=== PATIENT | male | born 1965 | race Caucasian/White ===

== ENCOUNTER 2019-06-20 17:03 | Emergency (ER) | payer MEDICARE, SELFPAY ==
[2019-06-20 17:18] VITALS: BP 186/102; PULSE 98; RESP 20; TEMP 36.6; O2SAT 98
--- NOTE | 2019-06-20 18:26 | ED.UPPEXIN ---
HPI - Extremity Injury (Upper) General Chief Complaint: Extremity Injury, Upper Stated Complaint: right arm swelling Time Seen by Provider: 06/20/19 18:01 Source: patient Mode of arrival: Ambulatory History of Present Illness HPI narrative: Patient is a 54-year-old male with history of diabetes coronary artery disease hypertension hyperlipidemia presenting with right arm swelling for 1. He has actually seen evaluated at [facility] where he says he has an ultrasound done which was negative he was diagnosed with tendinitis sent home. He has been taking Tylenol as needed for pain but continues to have pain and swelling. He denies numbness or tingling. He does have some mild erythema but says that he has been rubbing it. He denies any fever or chills. He denies any history of IV in that arm. MD complaint: injury to: right Related Data Previous Rx's Medication Instructions Recorded cephalexin [Keflex] 500 mg PO TID #21 cap 06/20/19 Allergies Allergy/AdvReac Type Severity Reaction Status Date / Time No Known Drug Allergies Allergy Verified 06/20/19 17:24 Review of Systems Review of Systems ROS Unobtainable: All systems reviewed & are unremarkable except as noted in HPI and below Constitutional Constitutional: Denies chills, Denies fever(s), Denies lethargy and Denies weakness Eyes Eyes: Denies change in vision, Denies eye discharge, Denies irritation and Denies loss of vision ENT Ears, Nose, Mouth, and Throat: Denies change in voice, Denies neck pain and Denies sore throat Cardiovascular Cardiovascular: Denies chest pain, Denies irregular heart rhythm, Denies lightheadedness, Denies palpitations, Denies dyspnea, Denies dyspnea on exertion and Denies orthopnea Respiratory Respiratory: Denies cough, Denies dyspnea, Denies dyspnea on exertion and Denies wheezing Gastrointestinal Gastrointestinal: Denies abdominal pain, Denies change in bowel habits, Denies diarrhea, Denies nausea and Denies vomiting Genitourinary Genitourinary: Denies hematuria, Denies flank pain, Denies urinary incontinence and Denies urinary urgency Musculoskeletal Musculoskeletal: Reports joint swelling (right arm swelling lower arm) and Denies neck pain Integumentary/Breasts Skin/Breast: Reports erythema (mild) Neurologic Neurologic: Denies loss of vision and Denies weakness Endocrine Endocrine: Denies palpitations Allergic/Immunologic Allergic/Immunologic: Denies wheezing Patient History Medical History Coronary artery disease (Acute) Diabetes (Acute) Hyperlipidemia (Acute) Hypertension (Acute) tobacco type: smokeless tobacco Exam Initial Vital Signs Initial Vital Signs: Vital Signs Temperature 97.8 F 06/20/19 17:18 Pulse Rate 98 H 06/20/19 17:18 Respiratory Rate 20 06/20/19 17:18 Blood Pressure 186/102 H 06/20/19 17:18 Pulse Oximetry 98 06/20/19 17:18 GENERAL: Well-appearing, well-nourished and in no acute distress. HEENT: Head atraumatic,EOMI, pupils reactive, face symmetric CARDIOVASCULAR: Regular rate and rhythm without murmurs, rubs or gallops. RESPIRATORY: Breath sounds equal bilaterally, no wheezes rales or rhonchi. EXTREMITIES: Normal range of motion, no clubbing or edema. Neurovascularly intact Right upper extremity: swelling minimal erythema around the olecranon and slight lower forearm. He has good strength able to pronate pain with supination distal radial pulse felt neurovascularly and tacked NEUROLOGICAL: Alert and oriented x4.Normal gait and speech. Cranial nerves II through XII grossly intact. SKIN: Warm, dry, no laceration, no petechiae, no rashes or lesions. Course Orders Ordered: ED Orders 06/20/19 18:36 US periph venous up extrem rt Stat 06/20/19 19:34 Basic Metabolic Panel Stat Complete Blood Count AUTO DIFF Stat Procalcitonin Stat Discontinued Medications Cefazolin Sodium (Keflex 250 Mg Prepack) 1 bottle [facility] [place] Stop: 06/20/19 20:35 Last Admin: 06/20/19 20:39 Dose: 1 bottle Documented by: [email or web address] Ketorolac Tromethamine (Toradol) 30 mg IM NOW ONE Stop: 06/20/19 18:37 Last Admin: 06/20/19 19:14 Dose: 30 mg Documented by: NIKHIL Vital Signs Vital signs: Vital Signs - 8 hr 06/20/19 17:18 06/20/19 20:35 Temperature 97.8 F Pulse Rate 98 H 89 Respiratory Rate 20 17 Blood Pressure 186/102 H 176/85 H Pulse Oximetry 98 97 MDM - Extremity Injury (Upper) Lab Data Attestation: I reviewed the patient's lab results. Result diagrams: 06/20/19 19:34 06/20/19 19:34 Labs: Lab Results 06/20/19 06/20/19 06/20/19 Range/Units 19:34 19:34 19:34 WBC 7.9 (4.5-11.0) X10^3/uL RBC 5.51 (4.5-5.9) X10^6/uL Hgb 16.6 (13.5-17.5) g/dL Hct 49.4 (41-53) % MCV 89.6 (80-100) fL MCH 30.1 (26-34) PG MCHC 33.6 (30-36) % RDW 14.6 (11.6-14.8) % Plt Count 317 (150-400) X10^3/uL Neut % (Auto) 72.0 (50-75) % Lymph % (Auto) 17.6 L (25-40) % [place] % (Auto) 8.2 (3-14) % Eos % (Auto) 0.7 L (2-4) % Baso % (Auto) 1.5 (0-2) % Neut # (Auto) 5700 (4224-7479) /uL Lymph # (Auto) 1400 (7011-3050) /uL [place] # (Auto) 600 (0-900) /uL Eos # (Auto) 100 (0-450) /uL Baso # (Auto) 100 (0-100) /uL Sodium 135 L (137-145) mmol/L Potassium 3.7 (3.4-5.1) mmol/L Chloride 96 L (98-107) mmol/L Carbon Dioxide 28 (22-32) mmol/L BUN 13 (9-20) mg/dL Creatinine 0.70 (0.66-1.25) mg/dL Estimated GFR > 60.0 (>60) mL/min BUN/Creatinine Ratio 18.6 (6-22) Glucose 404 H (70-100) mg/dL Calcium 9.1 (8.4-10.2) mg/dL Procalcitonin 0.07 (<0.5) ng/mL Imaging Data Venous US: Radiologist's impression: PROCEDURE: US PERIPH VENOUS UP EXTREM RT INDICATIONS: EDEMA TECHNIQUE: Real-time imaging, as well as color and pulse Doppler interrogation, was performed of the right upper extremity deep veins from the inferior neck to the antecubital fossa. COMPARISON: None. FINDINGS: The internal jugular vein, visualized portions of the subclavian vein, axillary, and brachial veins are free of intraluminal thrombus. Where physically possible, the veins are normally compressible. Color and pulse Doppler demonstrate normal intraluminal flow, with expected phasicity and pulsatility. Additional scanning of the cephalic and basilic veins of the superficial system demonstrate normal compressibility, without thrombus. IMPRESSION: No evidence of right upper extremity DVT. Dictated by: Ananth Travis M.D. on 06/20/2019 at 19:45 Approved by: Ananth Travis M.D. on 06/20/2019 at 19:46 [facility] Narrative Medical decision making narrative: THE PATIENT DOES HAVE SWELLING MILD ERYTHEMA NO LEUKOCYTOSIS NO FEVER. HOWEVER I WILL START HIM ON SOME ANTIBIOTICS. POSSIBLE TENDINITIS VERSUS MILD CELLULITIS. Discharge Plan Departure Patient Disposition: Home Clinical Impression: Cellulitis Qualifiers: Site of cellulitis: extremity Site of cellulitis of extremity: upper extremity Laterality: right Qualified Code(s): L03.113 - Cellulitis of right upper limb Discharge Date/Time: 06/20/19 20:34 Instructions: Cellulitis Activity Restrictions/Additional Instructions: *You have been diagnosed with cellulitis right arm *What to do: Possible infection of right arm *Continue to take medications as directed Keflex 500 mg 3 times a day for 7 days Ibuprofen 800 mg every 8 hours if needed for pain *Follow up with your primary care provider in 2-3 days *Return to ER if you should have increasing redness, increasing swelling, increasing pain or any new, worsening or concerning symptoms Prescriptions: New cephalexin [Keflex] 500 mg capsule 500 mg PO TID Qty: 21 RF: 0
--- NOTE | 2019-06-20 18:36 | DI.US.S_ITS ---
PROCEDURE: US PERIPH VENOUS UP EXTREM RT INDICATIONS: EDEMA TECHNIQUE: Real-time imaging, as well as color and pulse Doppler interrogation, was performed of the right upper extremity deep veins from the inferior neck to the antecubital fossa. COMPARISON: None. FINDINGS: The internal jugular vein, visualized portions of the subclavian vein, axillary, and brachial veins are free of intraluminal thrombus. Where physically possible, the veins are normally compressible. Color and pulse Doppler demonstrate normal intraluminal flow, with expected phasicity and pulsatility. Additional scanning of the cephalic and basilic veins of the superficial system demonstrate normal compressibility, without thrombus. IMPRESSION: No evidence of right upper extremity DVT. Dictated by: Ananth Travis M.D. on 06/20/2019 at 19:45 Approved by: Ananth Travis M.D. on 06/20/2019 at 19:46
[2019-06-20] MEDS: KETOROLAC 60 MG/2 ML VIAL 30 MG IM (19:14)
[2019-06-20 19:49] LABS: Add Manual Diff / Slide Review NO; Basophils Absolute Auto 100 /uL (0-100); Basophils Percent Auto 1.5 % (0-2); Eosinophils Absolute Auto 100 /uL (0-450); Eosinophils Percent Auto 0.7 % (2-4); Hematocrit 49.4 % (41-53); Hemoglobin 16.6 g/dL (13.5-17.5); Lymphocytes Absolute Auto 1400 /uL (1100-4500); Lymphocytes Percent Auto 17.6 % (25-40); Mean Corpuscular HGB Conc 33.6 % (30-36); Mean Corpuscular Hemoglobin 30.1 PG (26-34); Mean Corpuscular Volume 89.6 fL (80-100); Monocytes Absolute Auto 600 /uL (0-900); Monocytes Percent Auto 8.2 % (3-14); Neutrophils Absolute Auto 5700 /uL (1500-7000); Platelet Count 317 X10^3/uL (150-400); Red Blood Cell Count 5.51 X10^6/uL (4.5-5.9); Red Cell Distribution Width 14.6 % (11.6-14.8); White Blood Cell Count 7.9 X10^3/uL (4.5-11.0)
[2019-06-20 20:00] LABS: BUN Creatinine Ratio 18.6 (6-22); Blood Urea Nitrogen 13 mg/dL (9-20); Calcium 9.1 mg/dL (8.4-10.2); Carbon Dioxide 28 mmol/L (22-32); Chloride 96 mmol/L (98-107); Estimated Glomerular Filt Rate > 60.0 mL/min (>60); Glucose 404 mg/dL (70-100); HEMOLYSIS < 15 (0-50); Potassium 3.7 mmol/L (3.4-5.1); Sodium 135 mmol/L (137-145)
[2019-06-20 20:27] LABS: Procalcitonin 0.07 ng/mL (<0.5)
[2019-06-20 20:35] VITALS: BP 176/85; PULSE 89; RESP 17; O2SAT 97
[2019-06-20] MEDS: cephALEXin 250 MG PREPACK 1 BOTTLE MISC (20:39)
== END 2019-06-20 20:34 | disposition home or self-care (01) ==
PROVIDERS: Emergency Provider Emergency Medicine
DX: L03.113 Cellulitis of right upper limb (principal); L53.9 Erythematous condition, unspecified; E78.5 Hyperlipidemia, unspecified; I10 Essential (primary) hypertension; I25.10 Atherosclerotic heart disease of native coronary artery without angina pectoris; E11.9 Type 2 diabetes mellitus without complications
CPT/HCPCS: 36415; 80048; 84145; 85025; 93971; 96372; 99282; 99284; J1885